=== PATIENT | female | born 2005 | race Two or more races ===

== ENCOUNTER 2025-02-06 06:29 | Emergency (ER) | payer OTHER ==
[~2025-02-06] VITALS: Ht 165.1 cm; Wt 47.6 kg
[2025-02-06] MEDS ORDERED: 0.9 % SODIUM CHLORIDE 500 ML IV STA (07:32)
[2025-02-06] MEDS ORDERED: PROMETHAZINE HCL 50 MG/ML AMPUL IM STA (07:33)
[2025-02-06] MEDS ORDERED: KETOROLAC TROMETHAMINE 30 MG VIAL IV STA (07:33)
[2025-02-06] MEDS ORDERED: FAMOtidine 10 MG/ML (4ML VIAL) IV PUSH STA (07:34)
[2025-02-06 07:56] LABS: BASO % 0.3 % (0.1-1.2); EOS # 0.00 (0.04-0.54); EOS % 0.0 % (0.7-7.0); LYMPH # 0.80 (1.18-3.74); LYMPH % 7.4 % (19.3-53.1); MEAN PLATELET VOLUME 9.60 fl (9.4-12.4); MONO # 0.26 (0.24-0.82); MONO % 2.4 % (4.7-12.5); NEUT # 9.68 (1.56-6.13); NEUT % 89.5 % (34.0-71.1); RED CELL DISTRIBUTION WIDTH 13.6 % (11.6-14.4)
[2025-02-06 08:25] LABS: BUN CREA RATIO 10.0 (7.0-25.0); CREATININE SERUM 0.79 mg/dL (0.55-1.02); GFR 91.87; GLUCOSE FASTING 135.0 mg/dL (65-100); OSMOLALITY SERUM 280.0 MOSM/KG (275-295)
== END 2025-02-06 10:52 | disposition home or self-care (01) ==
LOC: ER 06:29
DX: N94.6 Dysmenorrhea, unspecified (principal); R10.9 Unspecified abdominal pain; R10.2 Pelvic and perineal pain; R11.0 Nausea